=== PATIENT | female | born 2000 | race African-American/Black ===

== ENCOUNTER 2020-09-14 11:29 | Inpatient (IN) | payer OTHER ==
[2020-09-14] MEDS ORDERED: hydrALAZINE 20 MG/ML VIAL SLOW IVP PRN (12:35)
[2020-09-14] MEDS ORDERED: Metoclopramide HCl 10 MG/2 ML VIAL IVP PRN (12:38)
[2020-09-14] MEDS ORDERED: Metoclopramide HCl 10 MG/2 ML VIAL IVP SCH (12:45)
[2020-09-14] MEDS ORDERED: Lactated Ringer's 1,000 ML IV SCH (12:45)
[2020-09-14] MEDS ORDERED: cefTRIAXone\\ROCEPHIN 1 GM in Sodium Chloride 0.9% 100 ML IVPB SCH (12:45)
[2020-09-14] MEDS ORDERED: diphenhydrAMINE 50 MG/ML VIAL IVP SCH (12:45)
[2020-09-14] MEDS ORDERED: Sodium Chloride 0.9% 1,000 ML IV SCH (12:45)
[2020-09-14] MEDS ORDERED: Acetaminophen 500 MG TAB PO PRN (13:02)
[2020-09-14 13:33] LABS: ALT (SGPT) 7 U/L (8-55); AST (SGOT) 17 U/L (5-34); Albumin 3.8 g/dL (3.5-5.0); Alkaline Phosphatase 66 U/L (40-110); Anion Gap 14 mmol/L (10-20); BUN (Urea Nitrogen) 8 mg/dL (7.0-18.7); Bilirubin, Total 0.4 mg/dL (0.2-1.2); Calc. Creatinine Clearance 0 mL/min (70-130); Calcium 9.1 mg/dL (7.8-10.44); Carbon Dioxide 19 mmol/L (22-29); Chloride 105 mmol/L (98-107); Globulin 3.2 g/dL (2.4-3.5); Glucose 82 mg/dL (70-105); Potassium 3.9 mmol/L (3.5-5.1); Sodium 134 mmol/L (136-145)
[2020-09-14] MEDS: Sodium Chloride 0.9% 1,000 ML IV SCH ×3 (14:37→17:24)
[2020-09-14] MEDS: cefTRIAXone\\ROCEPHIN 1 GM in Sodium Chloride 0.9% 100 ML IVPB SCH (14:40)
[2020-09-14 14:54] LABS: Bilirubin Neg (Negative); Blood, Urine 25 (Negative); Clarity Slightly Cloudy (Clear); Glucose, Urine (Dipstick) Normal (Negative); Ketone, Urine 50 mg/dL (Negative); Leukocyte 500 (Negative); Nitrite Negative (Negative); Protein, Urine (Dipstick) 30 mg/dl (Neg-Trace); Urobilinogen Normal mg/dL (Less than 2)
[2020-09-14 14:56] VITALS: BMI 24.3
[2020-09-14 15:02] LABS: RBC/HPF 0-3 HPF (0-3); Squamous Epithelial 0-3 HPF (0-3); Transitional Epithelial 0-3 HPF (None Seen); WBC/HPF 21-50 HPF (0-3)
[2020-09-14 15:03] LABS: Bacteria/HPF Rare-Few HPF (None Seen); Mucous/LPF 1+ LPF (<2+)
[2020-09-14] MEDS: Potassium Chloride 40 MEQ in Dextrose 5%-Lactated Ringers 1,000 ML IV SCH ×2 (17:13→22:27)
[2020-09-14] MEDS: diphenhydrAMINE 50 MG/ML VIAL IVP SCH ×2 (17:30→21:26)
[2020-09-14] MEDS ORDERED: Zolpidem Tartrate 5 MG TAB PO PRN (21:00)
[2020-09-15] MEDS: cefTRIAXone\\ROCEPHIN 1 GM in Sodium Chloride 0.9% 100 ML IVPB SCH ×2 (00:56→13:10)
[2020-09-15] MEDS: diphenhydrAMINE 50 MG/ML VIAL IVP SCH ×3 (00:56→08:17)
[2020-09-15] MEDS ORDERED: Metoclopramide HCl 10 MG/2 ML VIAL IVP SCH (08:00)
[2020-09-15] MEDS: Potassium Chloride 40 MEQ in Dextrose 5%-Lactated Ringers 1,000 ML IV SCH ×2 (09:02→16:08)
[2020-09-15] MEDS: diphenhydrAMINE 25 MG CAP PO PRN ×2 (13:10→21:53)
[2020-09-15 14:35] LABS: SARS-CoV-2 PCR by NAA Not Detected (NotDetected)
[2020-09-15] MEDS: Metoclopramide HCl 10 MG TAB PO SCH ×2 (16:09→21:53)
[2020-09-16] MEDS: cefTRIAXone\\ROCEPHIN 1 GM in Sodium Chloride 0.9% 100 ML IVPB SCH ×2 (01:43→03:27)
[2020-09-16] MEDS: Potassium Chloride 40 MEQ in Dextrose 5%-Lactated Ringers 1,000 ML IV SCH (05:41)
[2020-09-16 07:59] VITALS: BP 121/77; TEMP 99.2
[2020-09-16] MEDS: Metoclopramide HCl 10 MG TAB PO SCH (09:00)
== END 2020-09-16 09:25 | disposition home or self-care (01) | DRG 832 ==
LOC: CSHPP 11:44 → OBSVTOIN 12:35
PROVIDERS: ADMIT Obstetrics & Gynecology; ATTEND Obstetrics & Gynecology
DX: O21.0 Mild hyperemesis gravidarum (principal); O23.01 Infections of kidney in pregnancy, first trimester; Z20.822 Contact with and (suspected) exposure to COVID-19; O99.511 Diseases of the respiratory system complicating pregnancy, first trimester; J45.909 Unspecified asthma, uncomplicated; Z3A.10 10 weeks gestation of pregnancy; Z88.0 Allergy status to penicillin; Z79.51 Long term (current) use of inhaled steroids; Z79.899 Other long term (current) drug therapy
CPT/HCPCS: 76705; 80053; 81001; 87635; J0696; J1200; J2765; J3480; J3490; Q0163; U0003; U0005

== ENCOUNTER 2021-03-16 16:56 | Inpatient (IN) | payer OTHER ==
[2021-03-16 17:54] VITALS: BMI 28.9
[2021-03-16] MEDS ORDERED: hydrALAZINE 20 MG/ML VIAL SLOW IVP PRN ×3 (17:59→21:29)
[2021-03-16] MEDS ORDERED: Morphine 4 MG/ML VIAL SLOW IVP SCH (18:00)
[2021-03-16] MEDS ORDERED: Acetaminophen 500 MG TAB PO PRN (18:00)
[2021-03-16] MEDS ORDERED: Lactated Ringer's 1,000 ML IV SCH (18:00)
[2021-03-16 18:17] LABS: Fetal Membranes Rupture No Membranes Rupture (No Rupture)
[2021-03-16 18:26] LABS: Hemoglobin 8.1 g/dL (12.0-15.5); Mean Corpuscular HGB CONC 30.5 g/dL (32.0-36.0); Mean Corpuscular Hemoglobin 20.5 pg (27.0-33.0); Mean Corpuscular Volume 67.3 fl (81.6-98.3); Mean Platelet Volume 8.9 fl (7.4-10.4); Platelet Count 458 10x3/uL (150-450); RBC Distribution Width 15.9 % (11.5-14.5); Red Blood Cell (RBC) Count 3.95 10x6/uL (3.90-5.03); White Blood Cell (WBC) Count 15.6 10x3/uL (3.5-10.5)
[2021-03-16 18:54] LABS: Hep B Surf Ag Non-Reactive S/CO (NonReactive); Syphilis Antibody Nonreactive (Nonreactive); Syphilis Antibody Index 0.16 S/CO (<1.00 Non-Reactive)
[2021-03-16 18:55] LABS: HBSAg Index 0.21 S/CO (0-0.99)
[2021-03-16] MEDS ORDERED: Promethazine HCl 25 MG/ML VIAL IM PRN ×2 (21:29→22:20)
[2021-03-16] MEDS ORDERED: Butorphanol Tartrate 1 MG/ML VIAL SLOW IVP PRN (21:29)
[2021-03-16] MEDS ORDERED: Ondansetron PF 4 MG/2 ML Vial IVP PRN ×2 (21:29→22:20)
[2021-03-16] MEDS ORDERED: Zolpidem Tartrate 5 MG TAB PO PRN (21:29)
[2021-03-16] MEDS ORDERED: Fentanyl 2 mcg/Bup 0.1% Cadd 100 ML ONE (21:36)
[2021-03-16] MEDS ORDERED: Lactated Ringer's 500 ML IV PRN (22:20)
[2021-03-16] MEDS ORDERED: diphenhydrAMINE 50 MG/ML VIAL IVP PRN (22:20)
[2021-03-16] MEDS ORDERED: Hydrocerin (Eucerin) Cream 120 gm Jar TOP PRN (22:20)
[2021-03-16] MEDS ORDERED: Naloxone HCl 0.4 mg/ml Vial IVP PRN ×2 (22:20)
[2021-03-16] MEDS ORDERED: Acetaminophen 325 MG TAB PO PRN (22:20)
[2021-03-16] MEDS ORDERED: ePHEDrine Sulfate 50 MG/10 ML VIAL SLOW IVP PRN (22:20)
[2021-03-16] MEDS ORDERED: Communication Order-Pharmacy FS SCH (22:30)
[2021-03-16] MEDS ORDERED: Fentanyl 2 mcg/Bupivacaine 0.1% Cassette 100 ML EPIDURAL SCH (22:30)
[2021-03-17] MEDS ORDERED: NS w/ Oxytocin 30 units 500 ML ONE ×2 (03:48→09:06)
[2021-03-17 04:16] LABS: SARS-CoV-2 NAA Rapid Test Not Detected (NotDetected)
[2021-03-17] MEDS ORDERED: Magnesium Sulfate 20 gm/500 ml 20 GM/500 ML BAG ONE ×2 (06:25→15:11)
[2021-03-17 07:06] LABS: ALT (SGPT) 24 U/L (8-55); AST (SGOT) 25 U/L (5-34); Albumin 3.4 g/dL (3.5-5.0); Alkaline Phosphatase 199 U/L (40-110); Anion Gap 15 mmol/L (10-20); BUN (Urea Nitrogen) 6 mg/dL (7.0-18.7); Bilirubin, Total 0.7 mg/dL (0.2-1.2); Calc. Creatinine Clearance 150 mL/min (70-130); Carbon Dioxide 19 mmol/L (22-29); Chloride 105 mmol/L (98-107); Globulin 3.5 g/dL (2.4-3.5); Glucose 76 mg/dL (70-105); Potassium 3.7 mmol/L (3.5-5.1); Protein, Total 6.9 g/dL (6.0-8.3); Sodium 135 mmol/L (136-145)
[2021-03-17] MEDS ORDERED: Calcium Gluconate 4.6 MEQ in Sodium Chloride 0.9% 100 ML IVPB PRN (08:32)
[2021-03-17] MEDS ORDERED: Preparation H Ointment 28 GM TUBE PR PRN (08:33)
[2021-03-17] MEDS ORDERED: Misoprostol 200 MCG TAB VAG PRN (08:33)
[2021-03-17] MEDS ORDERED: hydrALAZINE 20 MG/ML VIAL SLOW IVP PRN (08:33)
[2021-03-17] MEDS ORDERED: Bisacodyl 10 MG SUPP PR PRN (08:33)
[2021-03-17] MEDS ORDERED: Milk Of Magnesia 30 ML UDCUP PO PRN (08:33)
[2021-03-17] MEDS ORDERED: traMADol HCl 50 MG TAB PO PRN ×2 (08:33)
[2021-03-17] MEDS: Ibuprofen 800 MG TAB PO SCH ×2 (09:26→17:47)
[2021-03-17 09:35] LABS: Magnesium 1.5 mg/dL (1.6-2.6)
[2021-03-17] MEDS: HYDROcodone/Acetaminophen 5/325 mg Tablet PO PRN (13:16)
[2021-03-17] MEDS: Ferrous Sulfate 325 MG TAB PO SCH (17:47)
[2021-03-17] MEDS: Prenatal Vitamin 1 TAB PO SCH (17:47)
[2021-03-17] MEDS: Docusate Calcium (SURFAK) 240 MG CAP PO SCH (21:04)
[2021-03-18] MEDS ORDERED: Magnesium Sulfate 20 gm/500 ml 20 GM/500 ML BAG ONE (00:20)
[2021-03-18] MEDS ORDERED: Magnesium Sulfate 20 gm/500 ml 20 GM/500 ML BAG IVPB SCH (00:30)
[2021-03-18] MEDS: Ibuprofen 800 MG TAB PO SCH ×4 (01:37→20:12)
[2021-03-18] MEDS: HYDROcodone/Acetaminophen 5/325 mg Tablet PO PRN ×3 (07:46→20:11)
[2021-03-18] MEDS ORDERED: Boostrix 0.5 ML (Tdap) VIAL IM ONE (08:33)
[2021-03-18] MEDS: Ferrous Sulfate 325 MG TAB PO SCH ×2 (09:08→16:45)
[2021-03-18] MEDS ORDERED: Albuterol Sulfate 1.25 MG/3 ML NEB NEB SCH (12:45)
[2021-03-18] MEDS ORDERED: diphenhydrAMINE 50 MG/ML VIAL IVP SCH ×2 (13:00→13:30)
[2021-03-18] MEDS: Lactated Ringer's 1,000 ML IV SCH ×3 (13:09→14:15)
[2021-03-18] MEDS: Prenatal Vitamin 1 TAB PO SCH (13:11)
[2021-03-18] MEDS: Docusate Calcium (SURFAK) 240 MG CAP PO SCH ×2 (13:11→20:12)
[2021-03-19] MEDS: Lactated Ringer's 1,000 ML IV SCH ×2 (07:54→13:12)
[2021-03-19] MEDS: Docusate Calcium (SURFAK) 240 MG CAP PO SCH (08:37)
[2021-03-19] MEDS: Ibuprofen 800 MG TAB PO SCH (08:37)
[2021-03-19] MEDS: Ferrous Sulfate 325 MG TAB PO SCH (08:37)
[2021-03-19] MEDS: Prenatal Vitamin 1 TAB PO SCH (08:37)
[2021-03-19] MEDS: HYDROcodone/Acetaminophen 5/325 mg Tablet PO PRN (13:11)
[2021-03-19 14:16] VITALS: BP 146/80; TEMP 98.5
== END 2021-03-19 14:00 | disposition home or self-care (01) | DRG 805 ==
LOC: CSHLD/OP 16:56 → CSHLD 22:34 → CSHPP 03-18 12:06
PROVIDERS: ADMIT Obstetrics & Gynecology; ATTEND Obstetrics & Gynecology
PROC: 10E0XZZ Delivery of Products of Conception, External Approach (ICD-10-PCS; principal; 2021-03-17)
PROC: 0UQMXZZ Repair Vulva, External Approach (ICD-10-PCS; 2021-03-17)
DX: O99.02 Anemia complicating childbirth (principal); O60.14X0 Preterm labor third trimester with preterm delivery third trimester, not applicable or unspecified; Z37.0 Single live birth; O14.94 Unspecified pre-eclampsia, complicating childbirth; Z3A.36 36 weeks gestation of pregnancy; D50.9 Iron deficiency anemia, unspecified; O99.52 Diseases of the respiratory system complicating childbirth; J45.909 Unspecified asthma, uncomplicated
CPT/HCPCS: 51702; 80053; 83735; 84112; 84156; 85027; 86780; 86850; 86900; 86901; 87340; 99285; J0360; J1200; J2270; J2405; J2590; J3475; J7120; U0002; U0003; U0005

== ENCOUNTER 2021-07-23 04:29 | Emergency (ER) | payer OTHER ==
[2021-07-23] MEDS ORDERED: Ventolin HFA Inhaler 60 PUFF INHALER ONE (04:54)
[2021-07-23 05:08] LABS: Bilirubin Neg (Negative); Blood, Urine Negative (Negative); Clarity Clear (Clear); Glucose, Urine (Dipstick) Normal (Negative); Ketone, Urine Negative (Negative); Leukocyte 25 (Negative); Nitrite Negative (Negative); Protein, Urine (Dipstick) 15 mg/dl (Neg-Trace)
[2021-07-23 05:11] LABS: Pregnancy Test - Urine (BHCG) Negative (Negative); Pregu Control Background? CLEAR/WHITE (CLR/WHITE); Pregu Control Bar Appear? YES (CONTROL BAR)
[2021-07-23 05:24] LABS: RBC/HPF 0-3 HPF (0-3)
[2021-07-23 05:25] LABS: Bacteria/HPF 2+ HPF (None Seen); Mucous/LPF 1+ LPF (<2+)
== END 2021-07-23 05:42 | disposition home or self-care (01) ==
LOC: CSHERS 04:29
DX: N39.0 Urinary tract infection, site not specified (principal); J45.909 Unspecified asthma, uncomplicated; Z79.899 Other long term (current) drug therapy
CPT/HCPCS: 81003; 81015; 81025; 99283

== ENCOUNTER 2021-07-28 08:45 | Emergency (ER) | payer OTHER ==
[2021-07-28] MEDS ORDERED: Ketorolac Tromethamine 30 MG/ML VIAL ONE (09:48)
[2021-07-28] MEDS ORDERED: Dexamethasone 4 MG TAB ONE (09:48)
== END 2021-07-28 10:48 | disposition home or self-care (01) ==
LOC: CSHERS 08:45
DX: J45.901 Unspecified asthma with (acute) exacerbation (principal); Z79.51 Long term (current) use of inhaled steroids; Z79.899 Other long term (current) drug therapy
CPT/HCPCS: 71045; 96372; J1885; J7620; J8540

== ENCOUNTER 2021-12-05 10:04 | Emergency (ER) | payer OTHER ==
[2021-12-05 11:07] LABS: #Eosinphils 0.5 10x3/uL (0.0-0.5); #Monocytes 0.6 10x3/uL (0.0-1.1); #Neutrophils 3.5 10x3/uL (1.5-8.4); %Basophils 0.4 % (0.0-2.0); %Eosinophils 7.4 % (0.0-6.0); %Lymphocytes 31.6 % (18.0-47.0); %Neutrophils 51.3 % (40.0-75.0); Hemoglobin 10.3 g/dL (12.0-15.5); Mean Corpuscular HGB CONC 32.3 g/dL (32.0-36.0); Mean Corpuscular Volume 71.4 fl (81.6-98.3); Platelet Count 370 10x3/uL (150-450); RBC Distribution Width 16.5 % (11.5-14.5); Red Blood Cell (RBC) Count 4.47 10x6/uL (3.90-5.03); White Blood Cell (WBC) Count 6.8 10x3/uL (3.5-10.5)
[2021-12-05] MEDS ORDERED: Ketorolac Tromethamine 30 MG/ML VIAL ONE (11:07)
[2021-12-05 11:15] LABS: ALT (SGPT) 10 U/L (8-55); AST (SGOT) 16 U/L (5-34); Albumin 4.1 g/dL (3.5-5.0); Alkaline Phosphatase 83 U/L (40-110); Anion Gap 11 mmol/L (10-20); BUN (Urea Nitrogen) 15 mg/dL (7.0-18.7); Bilirubin, Total 0.4 mg/dL (0.2-1.2); Calc. Creatinine Clearance 0 mL/min (70-130); Calcium 9.3 mg/dL (7.8-10.44); Carbon Dioxide 22 mmol/L (22-29); Chloride 107 mmol/L (98-107); Estimated GFR 108; Globulin 3.4 g/dL (2.4-3.5); Glucose 97 mg/dL (70-105); Potassium 3.9 mmol/L (3.5-5.1); Protein, Total 7.5 g/dL (6.0-8.3); Sodium 136 mmol/L (136-145)
[2021-12-05 11:16] LABS: BHCG - Serum Negative (NEGATIVE); Pregs Control Background? CLEAR/WHITE (CLR/WHITE); Pregs Control Bar Appear? YES (CONTROL BAR)
[2021-12-05 12:10] LABS: Bilirubin Neg (Negative); Blood, Urine 50 (Negative); Clarity Clear (Clear); Glucose, Urine (Dipstick) Normal (Negative); Ketone, Urine Negative (Negative); Leukocyte 25 (Negative); Nitrite Negative (Negative); Protein, Urine (Dipstick) Negative (Neg-Trace)
[2021-12-05 12:28] LABS: RBC/HPF 0-3 HPF (0-3); Squamous Epithelial 0-3 HPF (0-3); WBC/HPF 0-3 HPF (0-3)
[2021-12-05 12:29] LABS: Bacteria/HPF None Seen HPF (None Seen)
== END 2021-12-05 12:13 | disposition home or self-care (01) ==
LOC: CSHERS 10:04
DX: R10.2 Pelvic and perineal pain (principal)
CPT/HCPCS: 36415; 76856; 80053; 81003; 81015; 84703; 85025; 87086; 93976; 96374; J1885

== ENCOUNTER 2021-12-28 10:58 | Emergency (ER) | payer OTHER ==
[2021-12-28] MEDS ORDERED: Ibuprofen 200 MG TAB ONE (11:27)
[2021-12-28] MEDS ORDERED: Acetaminophen 500 MG TAB ONE (11:27)
[2021-12-28] MEDS ORDERED: Ventolin HFA Inhaler 60 PUFF INHALER ONE (11:32)
[2021-12-28] MEDS ORDERED: Bacitracin 1 PK ONE (12:04)
== END 2021-12-28 12:03 | disposition home or self-care (01) ==
LOC: CSHERS 10:58
DX: S91.102A Unspecified open wound of left great toe without damage to nail, initial encounter (principal); W26.8XXA Contact with other sharp object(s), not elsewhere classified, initial encounter; J45.909 Unspecified asthma, uncomplicated

== ENCOUNTER 2022-01-01 19:22 | Emergency (ER) | payer OTHER | END 2022-01-01 20:33 | disposition home or self-care (01) | LOC: CSHERS 19:22 | DX: S90.121A Contusion of right lesser toe(s) without damage to nail, initial encounter (principal); W20.8XXA Other cause of strike by thrown, projected or falling object, initial encounter ==

== ENCOUNTER 2022-03-16 12:05 | Inpatient (IN) | payer OTHER ==
[2022-03-16] MEDS ORDERED: Albuterol Sulfate 2.5 mg/3 ml Neb ONE ×2 (12:14→14:36)
[2022-03-16] MEDS ORDERED: methylPREDNISolone Sod Succ/PF 125 MG/2 ML VIAL ONE (12:17)
[2022-03-16] MEDS ORDERED: Magnesium 2 GM/50 ML BAG (IN WATER) ONE (12:17)
[2022-03-16 12:46] LABS: #Eosinphils 0.6 10x3/uL (0.0-0.5); #Monocytes 0.5 10x3/uL (0.0-1.1); #Neutrophils 6.8 10x3/uL (1.5-8.4); %Basophils 0.2 % (0.0-2.0); %Eosinophils 5.2 % (0.0-6.0); %Lymphocytes 30.8 % (18.0-47.0); %Monocytes 4.6 % (0.0-10.0); %Neutrophils 58.9 % (40.0-75.0); Hemoglobin 11.5 g/dL (12.0-15.5); Mean Corpuscular HGB CONC 32.4 g/dL (32.0-36.0); Mean Corpuscular Volume 74.1 fl (81.6-98.3); Mean Platelet Volume 9.9 fl (7.4-10.4); Platelet Count 513 10x3/uL (150-450); RBC Distribution Width 15.6 % (11.5-14.5); Red Blood Cell (RBC) Count 4.79 10x6/uL (3.90-5.03); White Blood Cell (WBC) Count 11.6 10x3/uL (3.5-10.5)
[2022-03-16 13:01] LABS: ALT (SGPT) 9 U/L (8-55); AST (SGOT) 22 U/L (5-34); Albumin 4.4 g/dL (3.5-5.0); Alkaline Phosphatase 98 U/L (40-110); Anion Gap 15 mmol/L (10-20); BHCG - Serum Negative (NEGATIVE); BUN (Urea Nitrogen) 10 mg/dL (7.0-18.7); Bilirubin, Total 0.7 mg/dL (0.2-1.2); Calc. Creatinine Clearance 0 mL/min (70-130); Calcium 9.2 mg/dL (7.8-10.44); Carbon Dioxide 21 mmol/L (22-29); Chloride 107 mmol/L (98-107); Estimated GFR 101; Globulin 3.5 g/dL (2.4-3.5); Glucose 143 mg/dL (70-105); Magnesium 1.8 mg/dL (1.6-2.6); Potassium 3.4 mmol/L (3.5-5.1); Pregs Control Background? CLEAR/WHITE (CLR/WHITE); Pregs Control Bar Appear? YES (CONTROL BAR); Protein, Total 7.9 g/dL (6.0-8.3); Sodium 140 mmol/L (136-145)
[2022-03-16 13:20] LABS: SARS-CoV-2 NAA Rapid Test Not Detected (NotDetected)
[2022-03-16] MEDS ORDERED: EPINEPHrine 1 MG/ML AMP ONE (14:39)
[2022-03-16 15:02] LABS: Actual Bicarbonate (HCO3v) 22 mEq/L (22-28); Base Excess -2.7 mEq/L (-2.0 to +3.0); Calcium, Ionized (venous) 1.13 mmol/L (1.16-1.32); Chloride (VBG) 107 mmol/L (98-106); Hemoglobin (Hb) 11.8 g/dL (11.7-15.5); Potassium (VBG) 3.21 mmol/L (3.70-5.30); Puncture Site Other Site; RapidComm Collect By CBN; Sodium 139.6 mmol/L (133-146); pH (venous) 7.37 (7.32-7.43)
[2022-03-16] MEDS ORDERED: Albuterol Sulfate 2.5 mg/3 ml Neb EZPAP PRN (15:43)
[2022-03-16] MEDS ORDERED: Dexmedetomidine In 0.9 % NaCl 100 ML IVPB SCH (15:45)
[2022-03-16] MEDS ORDERED: Lactated Ringer's 1,000 ML IV SCH (18:15)
[2022-03-16] MEDS ORDERED: Ipratropium Bromide 2.5 ml Neb NEB SCH (19:00)
[2022-03-16] MEDS ORDERED: Albuterol Sulfate 2.5 mg/3 ml Neb EZPAP SCH (19:00)
[2022-03-16] MEDS: methylPREDNISolone Sod Succ 40 MG VIAL IVP SCH (22:31)
[2022-03-16] MEDS ORDERED: Acetaminophen 325 MG TAB PO SCH (23:00)
[2022-03-17] MEDS ORDERED: FLU VACC QS2022-23(6MOS UP)/PF 60 MCG/0.5 ML SYRINGE IM ONE (01:30)
[2022-03-17 03:53] LABS: Actual Bicarbonate (HCO3v) 21 mEq/L (22-28); Base Excess -3.4 mEq/L (-2.0 to +3.0); Calcium, Ionized (venous) 1.23 mmol/L (1.16-1.32); Chloride (VBG) 106 mmol/L (98-106); Critical Notified By: CP.JL; Hemoglobin (Hb) 11.4 g/dL (11.7-15.5); Potassium (VBG) 4.32 mmol/L (3.70-5.30); Puncture Site Other Site; RapidComm Collect By LAB; pH (venous) 7.38 (7.32-7.43)
[2022-03-17 03:59] LABS: ALT (SGPT) 9 U/L (8-55); AST (SGOT) 17 U/L (5-34); Albumin 4.1 g/dL (3.5-5.0); Alkaline Phosphatase 87 U/L (40-110); Anion Gap 14 mmol/L (10-20); BUN (Urea Nitrogen) 11 mg/dL (7.0-18.7); Bilirubin, Total 0.3 mg/dL (0.2-1.2); Calc. Creatinine Clearance 0 mL/min (70-130); Calcium 9.4 mg/dL (7.8-10.44); Carbon Dioxide 19 mmol/L (22-29); Chloride 106 mmol/L (98-107); Estimated GFR 118; Globulin 3.2 g/dL (2.4-3.5); Glucose 158 mg/dL (70-105); Potassium 4.3 mmol/L (3.5-5.1); Protein, Total 7.3 g/dL (6.0-8.3); Sodium 135 mmol/L (136-145)
[2022-03-17] MEDS: methylPREDNISolone Sod Succ 40 MG VIAL IVP SCH ×4 (04:00→21:28)
[2022-03-17 04:08] LABS: #Monocytes 0.1 10x3/uL (0.0-1.1); #Neutrophils 9.1 10x3/uL (1.5-8.4); %Basophils 0.1 % (0.0-2.0); %Lymphocytes 4.2 % (18.0-47.0); %Monocytes 0.8 % (0.0-10.0); %Neutrophils 94.5 % (40.0-75.0); Hemoglobin 10.5 g/dL (12.0-15.5); Mean Corpuscular HGB CONC 32.7 g/dL (32.0-36.0); Mean Corpuscular Hemoglobin 24.3 pg (27.0-33.0); Mean Corpuscular Volume 74.3 fl (81.6-98.3); Mean Platelet Volume 10.2 fl (7.4-10.4); Platelet Count 427 10x3/uL (150-450); RBC Distribution Width 15.5 % (11.5-14.5); Red Blood Cell (RBC) Count 4.32 10x6/uL (3.90-5.03); White Blood Cell (WBC) Count 9.6 10x3/uL (3.5-10.5)
[2022-03-17] MEDS: Ipratropium Bromide 2.5 ml Neb NEB SCH ×2 (07:17→08:18)
[2022-03-17] MEDS ORDERED: Loperamide HCl 2 MG CAP PO PRN ×2 (08:34)
[2022-03-17] MEDS ORDERED: hydrALAZINE 20 MG/ML VIAL SLOW IVP PRN (08:34)
[2022-03-17] MEDS ORDERED: Moisturizing Cream (Eucerin) 113 GM JAR TOP PRN (08:34)
[2022-03-17] MEDS ORDERED: diphenhydrAMINE 25 MG CAP PO PRN (08:34)
[2022-03-17] MEDS ORDERED: Cepastat Lozenges 1 LOZ PO PRN (08:34)
[2022-03-17] MEDS ORDERED: Ondansetron ODT 4 MG TAB PO PRN (08:34)
[2022-03-17] MEDS ORDERED: Artificial Tear Sol 15 ML BOT EA EYE PRN (08:34)
[2022-03-17] MEDS ORDERED: Zolpidem Tartrate 5 MG TAB PO PRN (08:34)
[2022-03-17] MEDS ORDERED: Albuterol Sulfate 2.5 mg/3 ml Neb NEB PRN (08:39)
[2022-03-17] MEDS ORDERED: Azithromycin 500 MG in Sodium Chloride 0.9% 250 ML 250 ML IVPB SCH (08:45)
[2022-03-17] MEDS: cefTRIAXone\\ROCEPHIN 1 GM in Sodium Chloride 0.9% 100 ML IVPB SCH (09:11)
[2022-03-17] MEDS: Acetaminophen 500 MG TAB PO PRN ×2 (09:55→21:28)
[2022-03-17] MEDS: Albuterol Sulfate 2.5 mg/3 ml Neb NEB SCH ×3 (14:11→19:45)
[2022-03-17] MEDS: Mometasone/Formoterol 200/5 60 PUFF INH SCH (19:45)
[2022-03-17] MEDS ORDERED: Montelukast Sodium 10 mg Tablet PO SCH (21:00)
[2022-03-18] MEDS: methylPREDNISolone Sod Succ 40 MG VIAL IVP SCH (03:38)
[2022-03-18] MEDS: Acetaminophen 500 MG TAB PO PRN (03:44)
[2022-03-18] MEDS: Albuterol Sulfate 2.5 mg/3 ml Neb NEB SCH (07:30)
[2022-03-18] MEDS: cefTRIAXone\\ROCEPHIN 1 GM in Sodium Chloride 0.9% 100 ML IVPB SCH (08:19)
[2022-03-18] MEDS: Mometasone/Formoterol 200/5 60 PUFF INH SCH (08:53)
[2022-03-19 11:40] VITALS: BMI 28.2
[2022-03-19 11:45] VITALS: BP 128/73; TEMP 99.2
[2022-03-20 09:14] LABS: Tryptase 4.5 ug/L (2.2-13.2)
== END 2022-03-18 09:40 | disposition home or self-care (01) | DRG 189 ==
LOC: CSHERS 12:05 → CSHICU 21:45 → CSHTELE 03-17 12:22
PROVIDERS: ADMIT Family Medicine; ATTEND Family Medicine
PROC: 5A09357 Assistance with Respiratory Ventilation, Less than 24 Consecutive Hours, Continuous Positive Airway Pressure (ICD-10-PCS; principal; 2022-03-16)
DX: J96.01 Acute respiratory failure with hypoxia (principal); J45.902 Unspecified asthma with status asthmaticus; I10 Essential (primary) hypertension; Z20.822 Contact with and (suspected) exposure to COVID-19; F41.9 Anxiety disorder, unspecified; J20.8 Acute bronchitis due to other specified organisms; Z88.0 Allergy status to penicillin; Z88.8 Allergy status to other drugs, medicaments and biological substances; Z79.51 Long term (current) use of inhaled steroids; Z79.899 Other long term (current) drug therapy
CPT/HCPCS: 36415; 71045; 80053; 82805; 83519; 83735; 84703; 85025; 87070; 87205; 94640; 94644; 94645; 94660; 96372; 96374; 96375; J0171; J0456; J0696; J2920; J2930; J3475; J3490; J7050; J7120; J7611; J7620

== ENCOUNTER 2024-04-11 00:53 | Emergency (ER) | payer OTHER ==
[2024-04-11] MEDS ORDERED: Ipratropium/Albuterol 3 ML NEB ONE (01:10)
[2024-04-11] MEDS ORDERED: Albuterol 2.5 MG (0.5 mL) NEB ONE (01:17)
[2024-04-11] MEDS ORDERED: predniSONE 20 MG TAB ONE (01:29)
== END 2024-04-11 01:46 | disposition home or self-care (01) ==
LOC: CSHERS 00:53
DX: J45.20 Mild intermittent asthma, uncomplicated (principal)
CPT/HCPCS: J7512; J7611; J7620